=== PATIENT | male | born 1985 | race Caucasian/White ===

== ENCOUNTER 2024-02-02 13:57 | Outpatient (CLI) | payer BC ==
[2024-02-02 16:18] LABS: #Basophils 0.04 10x3/uL (0.0-0.2); #Monocytes 0.37 10x3/uL (0.0-1.1); %Basophils 0.8 % (0.0-2.0); %Eosinophils 3.8 % (0.0-6.0); %Lymphocytes 43.3 % (18.0-47.0); %Neutrophils 45.1 % (40.0-75.0); Hematocrit 41.9 % (38.8-50.0); Hemoglobin 14.9 g/dL (13.5-17.5); Mean Corpuscular HGB CONC 35.6 g/dL (32.0-36.0); Mean Corpuscular Hemoglobin 32.5 pg (27.0-33.0); Mean Corpuscular Volume 91.3 fL (81.2-95.1); Mean Platelet Volume 10.9 fL (7.4-10.4); Platelet Count 195 10x3/uL (150-450); RBC Distribution Width 12.3 % (11.5-14.5); Red Blood Cell (RBC) Count 4.59 10x6/uL (4.32-5.72); White Blood Cell (WBC) Count 5.3 10x3/uL (3.5-10.5)
[2024-02-02 16:27] LABS: Anion Gap 14 mmol/L (10-20); BUN (Urea Nitrogen) 10 mg/dL (8.9-20.6); Calc. Creatinine Clearance 0 mL/min (70-130); Calcium 9.5 mg/dL (7.8-10.44); Carbon Dioxide 25 mmol/L (22-29); Chloride 105 mmol/L (98-107); Estimated GFR 105; Glucose 95 mg/dL (70-105); Sodium 140 mmol/L (136-145)
== END 2024-02-02 13:58 | disposition home or self-care (01) ==
LOC: LABBT 13:57
PROVIDERS: ATTEND Surgery
DX: Z01.812 Encounter for preprocedural laboratory examination (principal); K43.9 Ventral hernia without obstruction or gangrene; K60.3 Anal fistula
CPT/HCPCS: 80048; 85025

== ENCOUNTER 2024-02-09 09:32 | Day surgery (SDC) | payer BC ==
[2024-02-02 14:45] VITALS: BMI 32.8
[2024-02-09] MEDS ORDERED: Sodium Chloride 0.9% 100 ML ONE (11:11)
[2024-02-09] MEDS ORDERED: CEFAZOLIN 2 GM VIAL ONE (11:11)
[2024-02-09] MEDS ORDERED: Lidocaine 1% PF 5 ML VIAL ONE (11:35)
[2024-02-09] MEDS ORDERED: Rocuronium Bromide 10 MG/ML (10ML VIAL) ONE (11:35)
[2024-02-09] MEDS ORDERED: fentaNYL PF 100 MCG/2 ML SYRINGE ONE ×3 (11:35→15:36)
[2024-02-09] MEDS ORDERED: PROPOFOL 20 ML ONE (11:35)
[2024-02-09] MEDS ORDERED: EPINEPHrine 1 MG/ML VIAL ONE (11:47)
[2024-02-09] MEDS ORDERED: Bupivacaine 0.25% HCL 30 ML VIAL ONE (11:47)
[2024-02-09] MEDS ORDERED: Dexamethasone 20 MG/5 ML VIAL ONE (13:28)
[2024-02-09] MEDS ORDERED: Ondansetron PF 4 MG/2 ML Vial ONE (14:42)
== END 2024-02-09 17:25 | disposition home or self-care (01) ==
LOC: SDC 09:32
PROVIDERS: ATTEND Surgery
PROC: 0WUF4JZ Supplement Abdominal Wall with Synthetic Substitute, Percutaneous Endoscopic Approach (ICD-10-PCS; principal; 2024-02-09)
PROC: 0DBQXZZ Excision of Anus, External Approach (ICD-10-PCS; principal; 2024-02-09)
DX: K43.9 Ventral hernia without obstruction or gangrene (principal); K60.3 Anal fistula; Z79.899 Other long term (current) drug therapy; Z91.013 Allergy to seafood; Z88.2 Allergy status to sulfonamides
CPT/HCPCS: C1781; J0171; J0665; J1100; J2405; J2704; J3490